=== PATIENT | male | born 1955 | race Caucasian/White ===

== ENCOUNTER 2021-12-26 22:21 | Inpatient (IN) | payer OTHER ==
[2021-12-25 22:00] VITALS: BP 166/91
[~2021-12-26] VITALS: Ht 175.3 cm; Wt 99.8 kg
[~2021-12-26 22:21] MED LIST: ANDRODERM1 EAC2 TD; ASPIR 8181 MG PO; ATORVASTATIN CA20 MG PO; CELEXA20 MG PO; CYCLOBENZAPRINE5 MG PO; DIAZEPAM2 MG PO; FLOMAX0.4 MG PO; GLIPIZIDE ER5 MG PO; HYTRIN 5 M5 MG/1 CAP PO; JANUMET 50-1,01 EACH PO; LEVAQUIN 500 M500 M2 PO; LIPITOR 20 MG T20 M1 PO; MECLIZINE HCL12.5 MG PO; NORCO 5-325 TA1 EACH PO; PRINIVIL20 M1 PO; PROTONIX40 M1 PO; RISPERDAL0.5 MG PO; VESICARE10 M1 PO; VITAMIN B-1100 M1 PO; VITAMIN D3400 UNIT PO
[2021-12-26 22:22] VITALS: BP 176/98
[2021-12-26 23:08] LABS: HEMATOCRIT 39.3 % (42.0-52.0); HEMOGLOBIN 12.8 gm/dL (14.0-18.0); MCH 25.3 pg (26.0-34.0); MCHC 32.6 g/dL (28.0-37.0); MCV 77.7 fL (80.0-100.0); MPV 8.6 fl. (7.2-11.1); NUCLEATED RBCS 0 /100WBC; PLATELET COUNT* 184 thou/uL (150-400); RBC 5.05 mil/uL (4.50-6.00); RDW-CV 14.9 % (10.5-14.5); WBC 8.5 thou/uL (4.0-11.0)
[2021-12-26 23:13] LABS: CALCIUM 8.8 mg/dL (8.5-10.1); CREATININE 1.2 mg/dL (0.6-1.3); POTASSIUM 3.8 mmol/L (3.5-5.1)
[2021-12-26 23:17] LABS: ALBUMIN 3.9 g/dL (3.4-5.0); MAGNESIUM 1.7 mg/dL (1.8-2.4); TOTAL BILIRUBIN 0.4 mg/dL (<0.1-1.0); TOTAL PROTEIN 7.5 g/dL (6.4-8.2)
[2021-12-26 23:40] LABS: INFLUENZA A ANTIGEN Negative (Negative); INFLUENZA B ANTIGEN Negative (Negative)
[2021-12-26 23:53] LABS: BE -2.9 mmol/L (-2 to +3); PCO2 34.7 mmHg (35.0-45.0); pH 7.404 (7.340-7.450)
[2021-12-27 00:06] LABS: URINE BILIRUBIN NEGATIVE (Negative); URINE BLOOD 2+ (Negative); URINE CLARITY CLEAR; URINE COLOR YELLOW; URINE GLUCOSE-RANDOM NEGATIVE (Negative); URINE KETONES 2+ (Negative); URINE LEUKOCYTES-REFLEX NEGATIVE (Negative); URINE NITRITE-REFLEX NEGATIVE (Negative); URINE PROTEIN 1+ (Negative); URINE SPECIFIC GRAVITY >= 1.030 (1.005-1.030); URINE UROBILINOGEN 0.2 E.U./dl (0.2-1.0)
[2021-12-27 00:28] LABS: BACTERIA-REFLEX 1-9 Few /HPF (None Seen); CRYSTALS None Seen /LPF (None Seen); FINE GRANULAR CASTS 0-3 Few /LPF (None Seen); HYALINE CASTS 0-3 Few /LPF (None Seen); MUCUS 4-6 Moderate strn/LPF (None Seen); SQUAMOUS 0-3 Few /LPF (0-3); URINE RBC 0-2 Rare /HPF (0-2); URINE WBC-REFLEX None Seen /HPF (0-5)
[2021-12-27 00:34] LABS: ABSOLUTE LYMPHOCYTES 0.5 thou/uL (0.8-5.3); ABSOLUTE MONOCYTES 0.4 thou/uL (0.0-1.2); ABSOLUTE NEUTROPHILS 7.6 thou/uL (1.6-8.1); PLATELET ESTIMATE ADEQUATE; TOXIC GRANULATION 1+
[2021-12-27 03:48] VITALS: BP 165/96
[2021-12-27 08:04] VITALS: BP 171/90
--- NOTE | 2021-12-27 11:17 | EKG ---
[place] [id number] ELECTROCARDIOGRAM REPORT Name: JYOTI LU Room: [place] [address] ADM IN .R.#: [id number] Admission: 12/26/21 Attend Phys: Devonte Selby, Discharge: Date of : 55 Date of Service: 12/26/212224 Report #: [id number] THIS REPORT FOR: //name// [facility] ED Test Date: 2021-12-26 Test Time: 22:25:06 Pat Name: JYOTI LU Department: Room: [facility] Gender: M Supervisor [place]: CHUCK : 1955 Requested By: Annamaria Stewart Order Number: [id number] MD: Odin Dalton Measurements Intervals Crane Rate: 129 P: 62 MS: 150 QRS: 49 QRSD: 88 T: -28 QT: 295 QTc: 433 Interpretive Statements Sinus tachycardia Borderline T abnormalities, inferior leads Compared to ECG 06/01/2016 00:01:50 Sinus rate has increased Left ventricular hypertrophy no longer present ST (T wave) deviation no longer present T-wave abnormality still present Electronically Signed On 12-27-2021 11:17:27 PAPER FINAL INSPECTOR by Odin Dalton [email or web address] <ELECTRONICALLY SIGNED> By: Odin Dalton MD, [facility] 12/27/21 1117 24 24 Odin Dalton MD, [facility] /EPI
[2021-12-27 11:39] VITALS: BP 139/94
[2021-12-27 15:03] VITALS: BP 147/62
[2021-12-27 20:00] VITALS: BP 147/62
[2021-12-28 00:21] VITALS: BP 158/85
[2021-12-28 04:00] VITALS: BP 173/73
[2021-12-28 04:37] LABS: ABSOLUTE LYMPHOCYTES 1.4 thou/uL (0.8-5.3); ABSOLUTE MONOCYTES 0.8 thou/uL (0.0-1.2); BASOPHILS 0.3 %; EOSINOPHILS 0.1 %; HEMATOCRIT 37.7 % (42.0-52.0); HEMOGLOBIN 12.2 gm/dL (14.0-18.0); LYMPHOCYTES 22.2 %; MCH 25.1 pg (26.0-34.0); MCHC 32.2 g/dL (28.0-37.0); MONOCYTES 13.4 %; MPV 8.6 fl. (7.2-11.1); NUCLEATED RBCS 0 /100WBC; PLATELET COUNT* 162 thou/uL (150-400); RBC 4.84 mil/uL (4.50-6.00); RDW-CV 15.1 % (10.5-14.5); WBC 6.3 thou/uL (4.0-11.0)
[2021-12-28 04:38] LABS: CREATININE 0.9 mg/dL (0.6-1.3); POTASSIUM 3.3 mmol/L (3.5-5.1)
[2021-12-28 08:00] VITALS: BP 156/61
[2021-12-28 11:55] VITALS: BP 120/60
[2021-12-28 16:14] VITALS: BP 170/79
[2021-12-29 04:40] VITALS: BP 156/91
[2021-12-29 08:00] VITALS: BP 175/94
[2021-12-29 10:05] LABS: ABSOLUTE LYMPHOCYTES 1.6 thou/uL (0.8-5.3); ABSOLUTE MONOCYTES 0.4 thou/uL (0.0-1.2); ABSOLUTE NEUTROPHILS 2.8 thou/uL (1.6-8.1); BASOPHILS 0.4 %; EOSINOPHILS 0.3 %; HEMATOCRIT 42.1 % (42.0-52.0); HEMOGLOBIN 13.6 gm/dL (14.0-18.0); LYMPHOCYTES 32.6 %; MCH 24.8 pg (26.0-34.0); MCHC 32.3 g/dL (28.0-37.0); MCV 76.9 fL (80.0-100.0); MONOCYTES 9.2 %; MPV 8.4 fl. (7.2-11.1); NUCLEATED RBCS 0 /100WBC; PLATELET COUNT* 156 thou/uL (150-400); POLYS 57.5 %; RBC 5.48 mil/uL (4.50-6.00); RDW-CV 14.9 % (10.5-14.5); WBC 4.9 thou/uL (4.0-11.0)
[2021-12-29 10:16] LABS: ALBUMIN 3.1 g/dL (3.4-5.0); CALCIUM 8.2 mg/dL (8.5-10.1); POTASSIUM 3.3 mmol/L (3.5-5.1); TOTAL BILIRUBIN 0.6 mg/dL (<0.1-1.0); TOTAL PROTEIN 6.6 g/dL (6.4-8.2)
[2021-12-29] MEDS ORDERED: DOXYCYCLINE 10100 MG PO (11:27)
[2021-12-29] MEDS ORDERED: BAYER CHEWABLE81 MG PO (11:27)
[2021-12-29] MEDS ORDERED: LIPITOR40 MG PO (11:29)
[2021-12-29 11:35] VITALS: BP 175/94
[2021-12-29 11:39] VITALS: BP 175/94
== END 2021-12-29 13:20 | disposition home or self-care (01) | DRG 178 ==
LOC: M.ERS 22:21 → M.ORTHSURG 23:48 → M.TBA-ER 23:48 → M.ORTHSURG 12-27 20:03
PROVIDERS: Personal Emergency Response Attendant; ADMIT Internal Medicine; ATTEND Internal Medicine
DX: U07.1 COVID-19 (principal); R65.10 Systemic inflammatory response syndrome (SIRS) of non-infectious origin without acute organ dysfunction; I70.1 Atherosclerosis of renal artery; E78.5 Hyperlipidemia, unspecified; I10 Essential (primary) hypertension; E11.42 Type 2 diabetes mellitus with diabetic polyneuropathy; F32.9 Major depressive disorder, single episode, unspecified; Z79.82 Long term (current) use of aspirin; Z88.6 Allergy status to analgesic agent; Z88.2 Allergy status to sulfonamides; Z79.899 Other long term (current) drug therapy